=== PATIENT | male | born 1975 | race Caucasian/White ===

== ENCOUNTER → 2016-10-03 | Outpatient (CLI) | payer BC ==
--- NOTE | 2016-10-04 03:07 | REP ---
Clinical: Back pain . Technique: AP, lateral, bilateral oblique, and coned-down views. Findings: Alignment and lordosis is maintained. The vertebral bodies including transverse process and spinous processes are intact and normal for age. There is no evidence for acute fracture / compression injury or subluxation. No evidence for spondylolysis or spondylolisthesis. No significant degenerative change is noted. Impression: Normal, appropriate lumbosacral spine radiograph series. Signed by Juanpablo Alves MD 10/04/2016 02:58 A
== END ==
LOC: M WUC 12:11
PROVIDERS: ATTEND Nurse Practitioner Family
DX: M54.5 Low back pain (principal)